=== PATIENT | female | born 1950 | race Caucasian/White ===

== ENCOUNTER → 2016-10-06 | Day surgery (SDC) | payer BC ==
[2016-10-04 13:04] VITALS: Ht 157.5 cm; Wt 86.8 kg
[~2016-10-06] VITALS: Ht 157.5 cm; Wt 86.8 kg
[~2016-10-06] MED LIST: ASPI81TA28 PO; BUSP5TAB59 PO; CHOL4POW3 PO; DIPH-416 PO; ECON0.05 TOP; LANS30CA12 PO; LIDOCAINE HCL 2% 2 ML VIAL (20MG/ML) ONE; MECL1TAB42 PO; MULT-506 PO; PROPOFOL IV EMULSION 10 MG/ML 20 ML VIAL IV ONE; PRZ/40 PO; SIMV-151 PO; SODIUM CHLORIDE 0.9% 500ML 500 ML IV ONE; TRIA0.1C20 TOP; VITA400C15 PO
--- NOTE | 2016-10-06 09:01 | Endo History and Physical ---
History & Physical Date of Service: October 06, 2016. Chief Complaint: Gasto reflux Referring Physician: ALEJANDRO Coronado History of Present Illness GERD Past Medical History Anxiety, Reflux, High Cholesterol, Other, Depression Past Surgical History Hx Cardiac Surgery: No Hx Abdominal Surgery: Yes (ZENA) Hx Post-Op Nausea and Vomiting: No Hx Cancer Surgery: Yes (MOHS ON FACE) Hx Thoracic Surgery: No Hx Orthopedic: Yes (RT/LEFT RCR, RT/LEFT MENISCUS REPAIR, RT BUNIONECTOMY) Hx Urinary Tract Surgery: Yes (BLADDER TACK (PROLAPSE BLADDER)) Family History None Social History Smoking Status: Never Smoker Hx Substance Use: No Hx Alcohol Use: Yes (RARELY) Allergies Coded Allergies: Amoxicillin (Verified Allergy, Unknown, tightness chest/hives, 10/04/16) Clavulanic Acid (Verified Allergy, Unknown, tightness chest/hives, 10/04/16 ) [place] (Verified Allergy, Unknown, HIVES, 10/04/16) Aspirin (Verified Adverse Reaction, Unknown, SEVERE STOMACH UPSET, 10/04/16 ) PT CAN TOLERATE ENTERIC COATED ASA Uncoded Allergies: V8 JUICE (Allergy, Unknown, HIVES, 11/07/13) Current Medications Reported Home Medications Medications Dose Route/Sig Max Daily Dose Days Date Category Prevacid (Lansoprazole) 30 Mg Capcr 30 Mg PO QAM 10/04/16 Reported Simvastatin 20 Mg Tab 20 Mg PO QAM 12/03/15 Reported Lomotil (Diphenoxylate HCl/Atropine) Tab 2 Tab PO Q6 PRN 12/03/15 Reported Cholestyramine 4 Gm/Dose Pow 4 Gm PO DAILY PRN 12/03/15 Reported Meclizine Hcl 25 Mg Tab 25 Mg PO TID PRN 11/21/13 Reported Aristocort 0.1% (Triamcinolone Acetonide) Cr 1 Appl TOP BID PRN 11/21/13 Reported Aspirin Ec (Aspirin) 81 Mg Tab 81 Mg PO QAM 11/07/13 Reported Multivitamin (Multivitamins) Tab 1 Tab PO QAM 11/07/13 Reported Vitamin E (jf-Oiccu-Pdgpmokouz Acetate) 400 Inter.unit Cap 400 Inter.unit PO QAM 11/07/13 Reported Spectazole 1% (Econazole Nitrate) 255 Appln/85 Gm Cr 1 Appln TOP PRN 11/07/13 Reported Buspirone Hcl 5 Mg Tab 5 Mg PO BID 11/07/13 Reported Prozac (Fluoxetine Hcl) 40 Mg Cap 40 Mg PO QAM 11/07/13 Reported Vital Signs Weight (Kilograms): 86.82 Height (Feet): 5 Height (Inches): 2 Date Time Temp Pulse Resp B/P Pulse Ox O2 Delivery O2 Flow Rate FiO2 10/06/16 08:36 36.7 74 20 149/80 95 Room Air Physical Exam General Appearance: no apparent distress Respiratory/Chest: Auscultation: breath sounds normal Cardiovascular: Heart Auscultation: RRR Abdomen: Inspection & Palpation: soft Assessment and Plan GERD - EGD
--- NOTE | 2016-10-06 09:24 | Discharge Instructions ---
Endoscopy Patient Instructions Date / Procedure(s) Performed October 06, 2016. EGD Allergy Information Coded Allergies: Amoxicillin (Verified Allergy, Unknown, tightness chest/hives, 10/04/16) Clavulanic Acid (Verified Allergy, Unknown, tightness chest/hives, 10/04/16 ) [place] (Verified Allergy, Unknown, HIVES, 10/04/16) Aspirin (Verified Adverse Reaction, Unknown, SEVERE STOMACH UPSET, 10/04/16 ) PT CAN TOLERATE ENTERIC COATED ASA Uncoded Allergies: V8 JUICE (Allergy, Unknown, HIVES, 11/07/13) Discharge Date / Findings October 06, 2016. Faint ring at GE junction Medication Instructions Stopped Medication(s): ASA 81 mg, & vitamins Provider Instructions Activity Restrictions - No exercising or heavy lifting for 24 hours. - Do not drink alcohol the day of the procedure. - Do not drive a car or operate machinery until the day after the procedure. - Do not make any important decisions or sign important papers in 24 hours after the procedure. Following Day: - Return to full activity which may include returning to work/school. Diet Start your diet with liquids and light foods (jello, soup, juice, toast). Then eat your usual diet if not nauseated. Treatment For Common After Affects For mild abdominal pain, bloating, or excessive gas: - Rest - Eat lightly - Lie on right side Follow-Up Information Follow-up with ALEJANDRO Coronado as scheduled Anesthesia Information What You Should Know You have had a procedure that required some medicine to reduce anxiety and discomfort. This treatment is called moderate sedation. After receiving the treatment, you may be sleepy, but you will be able to breathe on your own. The effects of the treatment may last for several hours. Follow these instructions along with Activity/Diet recommendations noted above: * Do NOT do anything where dizziness or clumsiness would be dangerous. * Rest quietly at home today, then you can be up and about tomorrow. * Have a responsible person stay with you the rest of today. * You may have had an I.V. today. If so, you may take the dressing off later today. Recommendations Call your doctor if: * Trouble breathing * Continuous vomiting for more than 24 hours * Temperature above 101 degrees * Severe abdominal pain or bloating * Pain not relieved by pain medicine ordered * There is increased drainage or redness from any incision * A large amount of rectal bleeding greater than 2-3 tablespoons. (If you had a polyp/s removed or have hemorrhoids, a small amount of blood - from the rectum is to be expected.) * You have any unanswered questions or concerns. IN THE EVENT OF A SERIOUS EMERGENCY, GO TO THE NEAREST EMERGENCY ROOM Your discharge instructions were prepared by provider Chiki Combs. Patient Instructions Signature Page Jennie Umana Patient (or Guardian) Signature/Date: I have read and understand the instructions given to me by my caregivers. Caregiver/RN/Doctor Signature/Date: The above-named patient and/or guardian has received patient instructions on this date. + Original Patient Signature Page (only) stays with chart. Please make copy for patient.
--- NOTE | 2016-10-06 09:31 | GI REPORT ---
Procedure Date: 10/06/2016 8:55 AM Procedure: Upper GI endoscopy Indications: Heartburn Medicines: See the Anesthesia note for documentation of the administered medications Complications: No immediate complications. Estimated Blood Loss: Estimated blood loss: none. Procedure: Pre-Anesthesia Assessment: - ASA Grade Assessment: III - A patient with severe systemic disease. After obtaining informed consent, the endoscope was passed under direct vision. Throughout the procedure, the patient's blood pressure, pulse, and oxygen saturations were monitored continuously. The scope was introduced through the mouth, and advanced to the second part of duodenum. The upper GI endoscopy was accomplished without difficulty. The patient tolerated the procedure well. Findings: The GE junction was at 38 cm. There was a faint ring at the GE junction. The esophagus was otherwise normal. The stomach and duodenum were normal. Recommendation: - Discharge patient to home. Chiki Viera M.D. Chiki Viera MD 10/06/2016 9:31:53 AM This report has been signed electronically. Note Initiated On: 10/06/2016 8:55 AM I attest to the content of the Intraoperative Record and orders documented therein, exceptions below
--- NOTE | 2016-10-06 09:52 | Anesthesiology Progress Note ---
Anesthesia Post Op Note Date & Time October 06, 2016 at 09:52 Vital Signs Pain Intensity: 0 Vital Signs Past 12 Hours Date Time Temp Pulse Resp B/P Pulse Ox O2 Delivery O2 Flow Rate FiO2 10/06/16 09:46 82 20 145/89 97 Room Air 10/06/16 09:29 77 20 112/87 94 Room Air 10/06/16 08:36 36.7 74 20 149/80 95 Room Air Notes Mental Status: alert / awake / arousable, participated in evaluation Pt Amnestic to Procedure: Yes Nausea / Vomiting: adequately controlled Pain: adequately controlled Airway Patency, RR, SpO2: stable & adequate BP & HR: stable & adequate Hydration State: stable & adequate Anesthetic Complications: no major complications apparent
[2016-10-06 10:05] VITALS: BP 142/86; PULSE 73; O2SAT 96
== END | disposition home or self-care (01) ==
LOC: C.GI 08:16
PROVIDERS: ATTEND Internal Medicine Gastroenterology
DX: K22.2 Esophageal obstruction (principal); K21.9 Gastro-esophageal reflux disease without esophagitis; E78.00 Pure hypercholesterolemia, unspecified; F32.9 Major depressive disorder, single episode, unspecified; F41.9 Anxiety disorder, unspecified